=== PATIENT | female | born 1965 | race Caucasian/White ===

== ENCOUNTER → 2019-03-01 13:21 | Outpatient (CLI) | payer MEDICAID, SELFPAY ==
[2019-03-01 14:24] LABS: Basophils % 0.1 % (0.1-2.0); Eosinophils # 0.2 K/mm3 (0.0-0.4); Eosinophils % 3.7 % (0.1-12.0); Hematocrit 41.5 % (37.0-47.0); Hemoglobin 14.2 g/dL (12.2-16.2); Lymphocytes # 1.5 K/mm3 (0.7-4.5); Lymphocytes % 36.2 % (10-50); Mean Corpuscular HGB Conc 34.2 g/dL (31.8-35.4); Mean Corpuscular Hemoglobin 32.1 pg (27.0-31.2); Mean Corpuscular Volume 93.6 fl (81-99); Mean Platelet Volume 10.3 fl (7.4-10.4); Monocytes # 0.3 K/mm3 (0.1-1.0); Monocytes % 7.2 % (1.7-9.3); Neutrophils # 2.2 K/mm3 (1.8-7.8); Neutrophils % 52.8 % (37.0-80.0); Platelet Count 137 K/mm3 (142-424); Red Blood Count 4.43 M/mm3 (4.20-5.40); Red Cell Distribution Width 14.8 % (11.5-17.5); White Blood Count 4.2 K/mm3 (4.8-10.8)
[2019-03-01 15:01] LABS: Alanine Aminotransferase 61 U/L (12-78); Albumin Level 3.2 gm/dL (3.4-5.0); Albumin/Globulin Ratio 0.9 (1.1-1.8); Alkaline Phosphatase 81 U/L (46-116); Anion Gap 11.8 mEq/L (5-15); Aspartate Amino Transferase 37 U/L (15-37); Bilirubin,Total 0.7 mg/dL (0.2-1.0); Blood Urea Nitrogen 8 mg/dL (7-18); Calcium 8.3 mg/dL (8.5-10.1); Carbon Dioxide 26 mmol/L (21.0-32.0); Chloride 104 mmol/L (98-107); Chol/HDL Ratio 7.9 (1-3.5); Cholesterol 189 mg/dL (140-200); Creatinine,Serum 0.68 mg/dL (0.55-1.02); Estimated Glomerular Filt Rate 91 ml/min (>60); GFR (African American) 110 ML/MIN (>60); Globulin 3.7 gm/dl (1.3-3.2); Glucose 105 mg/dL (74-106); HDL Cholesterol 24 mg/dL (29-89); LDL Cholesterol 139 mg/dL (0-130); Potassium 3.8 mmoL/L (3.5-5.1); Sodium 138 mmol/L (136-145); T4 (Thyroxine) 7.6 ug/dl (4.7-13.3); Thyroid Stimulating Hormone 1.99 uIU/ml (0.358-3.740); Total Protein,Serum 6.9 gm/dL (6.4-8.2); Triglycerides 128 mg/dL (30-200); VLDL Cholesterol 26 mg/dL (0-40)
[2019-03-02 11:14] LABS: Vitamin D 25 Hydroxy 17.2 ng/mL (30.0-100.0)
== END ==
PROVIDERS: Visit Provider Nurse Practitioner Family
DX: F32.9 Major depressive disorder, single episode, unspecified (principal); I10 Essential (primary) hypertension
CPT/HCPCS: 80053; 80061; 82652; 84436; 84443; 85025

== ENCOUNTER → 2020-08-31 09:35 | Outpatient (CLI) | payer MEDICAID, SELFPAY ==
--- NOTE | 2020-08-31 09:36 | MM_ITS ---
PROCEDURE: MM DIG SCREENING MAMM BI W/CAD Digital Breast Tomosynthesis Included CLINICAL INDICATION: breast ca screening There is no personal or family history of breast cancer. COMPARISON: This is a baseline screening exam, patient without complaints TECHNIQUE: Standard CC and MLO images and 3D Tomosynthesis was obtained. R2 CAD reviewed. FINDINGS: The breasts are composed minimal scattered fibroglandular densities in the subareolar regions bilaterally there are small nodular densities near the axillary tail right breast likely low-lying nodes or intramammary nodes. There is no suspicious lesion and no suspicious microcalcifications. IMPRESSION: Fatty type breast parenchyma with no suspicious lesions seen BI-RAD Category: 2 Benign Finding(s) FOLLOW-UP: 1YR 1 Year Follow-up (A letter has been sent to the patient regarding results of the study.) Dictated by: Dr. Grzegorz Brooks MD 09/04/2020 12:10 Dr. Grzegorz Brooks MD in [place] 09/04/2020 12:10
--- NOTE | 2020-08-31 11:44 | PC.NURSE ---
PFT and 6 minute walk test completed without complications. Albuterol 0.083% given via hand held nebulizer, per written protocol, Pt tolerated tx well.
== END ==
PROVIDERS: PCP Family Medicine; Visit Provider Family Medicine
DX: Z12.31 Encounter for screening mammogram for malignant neoplasm of breast (principal); R06.00 Dyspnea, unspecified; F17.200 Nicotine dependence, unspecified, uncomplicated
CPT/HCPCS: 77063; 77067; 94618; 94726

== ENCOUNTER → 2020-09-20 14:03 | Outpatient (CLI) | payer MEDICAID, SELFPAY | PROVIDERS: Visit Provider Family Medicine | DX: N39.0 Urinary tract infection, site not specified (principal) | CPT/HCPCS: 87086 ==

== ENCOUNTER → 2020-10-25 14:03 | Outpatient (CLI) | payer MEDICAID, SELFPAY ==
[2020-10-25 14:16] LABS: Basophils % 0.2 % (0.1-2.0); Eosinophils # 0.1 K/mm3 (0.0-0.4); Eosinophils % 3.4 % (0.1-12.0); Hematocrit 37.7 % (37.0-47.0); Hemoglobin 13.3 g/dL (12.2-16.2); Lymphocytes # 1.3 K/mm3 (0.7-4.5); Lymphocytes % 41.6 % (10-50); Mean Corpuscular HGB Conc 35.2 g/dL (31.8-35.4); Mean Corpuscular Hemoglobin 33.7 pg (27.0-31.2); Mean Corpuscular Volume 95.8 fl (81-99); Mean Platelet Volume 11.3 fl (7.4-10.4); Monocytes # 0.2 K/mm3 (0.1-1.0); Monocytes % 6.5 % (1.7-9.3); Neutrophils # 1.5 K/mm3 (1.8-7.8); Neutrophils % 48.3 % (37.0-80.0); Platelet Count 89 K/mm3 (142-424); Red Blood Count 3.93 M/mm3 (4.20-5.40); Red Cell Distribution Width 17.3 % (11.5-17.5)
[2020-10-25 14:21] LABS: Alanine Aminotransferase 65 U/L (12-78); Albumin Level 3.7 g/dl (3.5-5.0); Albumin/Globulin Ratio 0.9 (1.1-1.8); Alkaline Phosphatase 88 U/L (38-126); Anion Gap 9.5 mEq/L (5-15); Aspartate Amino Transferase 96 U/L (14-36); Bilirubin,Total 0.9 mg/dl (0.2-1.3); Blood Urea Nitrogen 10 mg/dl (7-17); Calcium 8.8 mg/dl (8.4-10.2); Carbon Dioxide 29 mmol/L (22.0-30.0); Chloride 103 mmol/L (98-107); Chol/HDL Ratio 7.2 (1-3.5); Cholesterol 194 mg/dl (140-200); Estimated Glomerular Filt Rate 88 ml/min (>60); GFR (African American) 106 ML/MIN (>60); Globulin 3.9 g/dL (1.3-3.2); Glucose 128 mg/dl (74-100); HDL Cholesterol 27 mg/dl (40-60); Lipase 222 U/L (23-300); Potassium 4.5 mmoL/L (3.5-5.1); Sodium 137 mmol/L (136-145); Total Protein,Serum 7.6 g/dl (6.3-8.2); Triglycerides 135 mg/dl (30-150); VLDL Cholesterol 27 mg/dL (0-40)
[2020-10-25 14:32] LABS: Direct LDL Cholesterol 134.22 mg/dL (100-129)
[2020-10-25 14:38] LABS: 25-OH Vitamin D, Total 16.8 ng/mL (30-100)
== END ==
PROVIDERS: Visit Provider Family Medicine
DX: R10.9 Unspecified abdominal pain (principal); E55.9 Vitamin D deficiency, unspecified
CPT/HCPCS: 80053; 80061; 82306; 83690; 84443; 85025

== ENCOUNTER 2021-08-01 06:18 | Emergency (ER) | payer MEDICAID, SELFPAY ==
[2021-08-01 06:20] VITALS: BP 127/80; PULSE 72; RESP 18; TEMP 36.8; O2SAT 96; BMI 37.1
--- NOTE | 2021-08-01 06:55 | XR_ITS ---
FINAL REPORT CLINICAL HISTORY: lower back pain, no trauma FINDINGS: AP and lateral views were obtained. There is no acute fracture. There is questionable minimal spondylolisthesis of L4 on L5. There is mild disc space narrowing at L3-L4. There is facet sclerosis in the lower lumbar spine. IMPRESSION: No acute process. Reviewed, Interpreted and Dictated by Goyo Franklin MD Transcribed by Carlos Mcconnell Authenticated by Goyo Franklin MD on 08/01/2021 08:34:44 AM [facility]
--- NOTE | 2021-08-01 07:16 | HMH.EDGENADL ---
ED Disposition Clinical Impression: Sciatica of right side Disposition: Home, Self-Care Condition on Discharge: Good Instructions: DI for Back Pain With Sciatica Additional Instructions: see pcp this am Referrals: Martin Marie MD [Primary Care Provider] - - Critical Care Critical Care Time: No Attestation: On 08/01/21, the high probability of a clinically significant, sudden or life threatening deterioration of the following system(s) required my full and direct attention, intervention and personal management. The time I documented below is in addition to time spent performing reported procedures but includes the following listed in this critical care notation. Medical Decision Making - Medical Records Medical records reviewed: Yes: I reviewed the patient's medical records. - Cheng Inquiry Pt receiving controlled substance: No Vital Signs: 08/01/21 06:20 Temperature 98.3 F Temperature Source Oral Pulse Rate [Left] 72 Respiratory Rate 18 Blood Pressure [Right Arm] 127/80 Blood Pressure Mean [Right Arm] 95 02 Sat by Pulse Oximetry 96 - Lab Data Lab results reviewed: Yes: I reviewed the patient's lab results. Orders (Tests/Meds): ED MEDICATIONS Generic Name Dose Route Start Last Admin Trade Name Freq PRN Reason Stop Dose Admin Dexamethasone Sodium Phosphate 8 mg 08/01/21 07:00 08/01/21 06:59 Dexamethasone 4mg/Ml 5ml Mdv IM 08/31/21 06:59 8 mg Q6H KAMAR Administration Discontinued Medications Generic Name Dose Route Start Last Admin Trade Name Freq PRN Reason Stop Dose Admin Ketorolac Tromethamine 60 mg 08/01/21 06:55 08/01/21 06:59 Ketorolac 60mg/2ml Vial IM 08/01/21 06:56 60 mg ONCE ONE Administration ORDERS Category Date Time Status XR lumbar spine 2-3V Stat Exams 08/01/21 06:55 Taken - Radiology Data #1 Image(s): L-Spine Image Reviewed: Yes I reviewed the patient's radiology image Preliminary Findings: Abnormal (djd), No Fracture Seen - Physician Consults Physician Consulted: darryl Reason -: Pt condition Medical Decision Narrative: clinical hx and exam consistent with sciatica - and will have pt see pcp this am General Adult HPI - General Chief complaint: PAIN Stated complaint: Lower back pain radiating down right leg,no injury Time Seen by Provider: 08/01/21 06:45 Mode of Arrival: Ambulatory Source of Information: Patient, Medical Record Limitations: No Limitations Description of Symptoms (Recalled from ER Triage Doc. by RN): pt reports pain in the right leg started last has since radiated into the right lower back and all the way to the toes. pt denies pain with urination - History of Present Illness HPI narrative: atraumatic pain lumbar into rt lower ext - no fever or rash - and no gu sx and no cauda equina sx Onset (ago): day(s) Location: back Severity: moderate Associated symptoms: denies other symptoms Treatments prior to arrival: none - Related Data Previous Rx's Medication Instructions Recorded fluticasone propionate 50 1 spray INTRANASAL DAILY #18.2 ml 03/08/20 mcg/actuation nasal spray,suspension lamotrigine 100 mg tablet 100 mg PO DAILY #30 tab 03/26/20 lorazepam 0.5 mg tablet 0.5 mg PO QHS PRN #15 tab 04/05/20 levocetirizine 5 mg tablet 5 mg PO DAILY PRN #30 tab 05/03/20 buspirone 10 mg tablet 10 mg PO TID PRN #90 tab 08/06/20 metoprolol succinate 100 mg 100 mg PO DAILY #90 tab 10/25/20 tablet,extended release 24 hr cyclobenzaprine 10 mg tablet See Rx Instructions .ROUTE 12/31/20 .COMPLEX #30 tab albuterol sulfate 90 mcg/actuation 2 puff INHALATION Q6H PRN #8.5 g 06/28/21 aerosol inhaler mirabegron 25 mg tablet,extended 25 mg PO DAILY #90 tab 06/28/21 release 24 hr vilazodone 20 mg tablet 20 mg PO DAILY #90 tab 06/28/21 Allergies Allergy/AdvReac Type Severity Reaction Status Date / Time naproxen [NAPROXEN] Allergy Unknown Verified 06/28/21 13:08 [facility] History - Hepatiti
[2021-08-01 07:34] VITALS: BP 132/55; PULSE 67; RESP 19; TEMP 37; O2SAT 96
== END 2021-08-01 07:34 | disposition home or self-care (01) ==
PROVIDERS: Emergency Provider Emergency Medicine; PCP Family Medicine
DX: M54.41 Lumbago with sciatica, right side (principal); F41.8 Other specified anxiety disorders; I10 Essential (primary) hypertension; Z87.891 Personal history of nicotine dependence
CPT/HCPCS: 72100; 96372; 99282

== ENCOUNTER 2021-08-20 15:00 | Outpatient (RCR) | payer MEDICAID, SELFPAY ==
--- NOTE | 2021-08-09 15:02 | HMH.PTOPEV ---
PT Outpatient Evaluation Rehab PT Outpatient Evaluation Start: 08/09/21 14:17 Freq: Status: Active Protocol: Document 08/09/21 14:17 BRAD (Rec: 08/09/21 14:58 BRAD [id number]) Electronically Signed By Nikolai Bass, PT 08/09/21 14:17 Outpatient Therapy Subjective History Subjective History Pt reports acute onset right sided LBP since 'almost falling a couple weeks. Once on ice, and once going down the stairs'. Pt reports R>L sided LBP with radicular s/s down to foot at its worst. Pt reports decreased LBP and RLE s/s w/only Right hip area pain . Chief Complaint Pain,Gives out/Unstable, Paresthesia,Weakness Symptom Type Ache,Throb,Sharp,Dull,Numbness ,Tingling Symptoms Relieved By Rest/Positioning,Heat,Ice Symptoms Aggravated By Standing,Walking Prior Functional Limitations None Current Functional Limitations Lifting,Housework,Standing, Walking,Bending/Stooping Symptom Description Constant but Variable Level of pain today (0-10) 4 Pain scale - at its best (0-10) 2 Pain scale - at its worst (0-10) 8 Lumbopelvic Eval Posture Thoracic Spine Posture Standing Position Flattened Lumbar Spine Posture Standing Position Neutral Assistive device Assistive Devices None / NA Gait Observation General Gait Pattern Observation Antalgic Gait Palapation tenderness right thoracic spinal tenderness Yes: 1/4 lumbar spinal tenderness Yes: 2/4 paraspinal tenderness Yes: 2-3/4 buttock tenderness Yes: 3/4 Lumbar/Sacral Palpation Findings Tenderness,Trigger Point, Muscle Guarding Accessory Movement L-spine Vertebrae Accessory Movements [place] that [place]it Symptoms L3 right L4 right L5 right Range of Motion Lumbar Spine Active Flexion Range of 0-21 Motion (degrees) Lumbar Spine Active Extension Range of 0-25 Motion (degrees) Left Lumbar Spine Lateral Flexion Active 0-31 Range of Motion (degrees) Right Lumbar Spine Lateral Flexion 0-23 Active Range of Motion (degrees) Lumbar Spine ROM Limitations Pain Manual Muscle Test Right Knee Extension Strength Grade 4 Good Knee Flexion Strength Grade 4 Good Hip Flexion Strength Grade 4- Good- Hip Abduction Strength Grade 4- Good- Hip Adduction Strength Grade
== END 2021-08-20 15:05 | disposition home or self-care (01) ==
LOC: PT 15:00
PROVIDERS: PCP Family Medicine; Visit Provider Family Medicine
DX: M54.31 Sciatica, right side (principal); M54.50 Low back pain, unspecified
CPT/HCPCS: 97010; 97012; 97014; 97110; 97163; G0283

== ENCOUNTER → 2021-10-03 16:57 | Outpatient (CLI) | payer MEDICAID, SELFPAY | PROVIDERS: PCP Physician Assistant; Visit Provider Physician Assistant | DX: M54.9 Dorsalgia, unspecified (principal); B96.20 Unspecified Escherichia coli [E. coli] as the cause of diseases classified elsewhere | CPT/HCPCS: 87086; 87088; 87186 ==

== ENCOUNTER → 2023-01-13 23:14 | Outpatient (CLI) | payer SELFPAY ==
[2023-01-13 19:49] LABS: Eosinophils % 1.6 % (0.1-12.0); Hematocrit 35.7 % (37.0-47.0); Hemoglobin 13.7 g/dL (12.2-16.2); Lymphocytes % 47.1 % (10-50); Mean Corpuscular HGB Conc 38.4 g/dL (31.8-35.4); Mean Corpuscular Hemoglobin 34.6 pg (27.0-31.2); Mean Corpuscular Volume 90.1 fl (81-99); Mean Platelet Volume 11.2 fl (7.4-10.4); Monocytes # 0.1 K/mm3 (0.1-1.0); Monocytes % 5.7 % (1.7-9.3); Neutrophils # 0.9 K/mm3 (1.8-7.8); Neutrophils % 45.6 % (37.0-80.0); Platelet Count 73 K/mm3 (142-424); Red Blood Count 3.96 M/mm3 (4.20-5.40); Red Cell Distribution Width 16.3 % (11.5-17.5)
[2023-01-13 19:53] LABS: Alanine Aminotransferase 34 U/L (12-78); Albumin Level 3.8 g/dl (3.5-5.0); Albumin/Globulin Ratio 1.1 (1.1-1.8); Alkaline Phosphatase 88 U/L (38-126); Anion Gap 12.4 mEq/L (5-15); Aspartate Amino Transferase 52 U/L (14-36); Bilirubin,Total 0.9 mg/dl (0.2-1.3); Blood Urea Nitrogen 13 mg/dl (7-17); Calcium 8.8 mg/dl (8.4-10.2); Carbon Dioxide 30 mmol/L (22.0-30.0); Chloride 102 mmol/L (98-107); Chol/HDL Ratio 4.8 (1-3.5); Cholesterol 164 mg/dl (140-200); Estimated Glomerular Filt Rate 74 ml/min (>60); GFR (African American) 90 ML/MIN (>60); Globulin 3.5 g/dL (1.3-3.2); Glucose 98 mg/dl (74-100); HDL Cholesterol 34 mg/dl (40-60); Potassium 4.4 mmoL/L (3.5-5.1); Sodium 140 mmol/L (136-145); Total Protein,Serum 7.3 g/dl (6.3-8.2); Triglycerides 142 mg/dl (30-150); VLDL Cholesterol 28 mg/dL (0-40)
[2023-01-13 20:03] LABS: Direct LDL Cholesterol 101.96 mg/dL (100-129)
[2023-01-13 20:18] LABS: Hemoglobin A1C 4.6 % (4.0-6.0)
[2023-01-13 20:24] LABS: Thyroid Stimulating Hormone 1.88 uIU/mL (0.465-4.68)
== END ==
PROVIDERS: PCP Family Medicine; Visit Provider Family Medicine
DX: I10 Essential (primary) hypertension (principal); M54.50 Low back pain, unspecified; M62.830 Muscle spasm of back; E66.09 Other obesity due to excess calories; Z68.35 Body mass index [BMI] 35.0-35.9, adult
CPT/HCPCS: 80053; 80061; 83036; 84443; 85025